=== PATIENT | female | born 1970 | race Caucasian/White ===

== ENCOUNTER 2017-10-23 08:44 | Emergency (ER) | payer OTHER, SELFPAY ==
--- NOTE | 2017-10-23 15:00 | RAD ---
FOUR VIEWS OF THE RIGHT KNEE: INDICATION: Right knee pain after fall. COMPARISON: None. FINDINGS: There is joint capsular distention. No acute fracture or subluxation is evident. No radiopaque fore ign body is noted. IMPRESSION: Joint capsular distention without acute osseous abnormality. If there is concern for internal derang ement, a followup MRI of the right knee may be helpful for further evaluation. POS: OFF
== END 2017-10-23 09:27 | disposition home or self-care (01) ==
LOC: BURERS 08:44
DX: S83.91XA Sprain of unspecified site of right knee, initial encounter (principal); G43.909 Migraine, unspecified, not intractable, without status migrainosus; I10 Essential (primary) hypertension; W01.0XXA Fall on same level from slipping, tripping and stumbling without subsequent striking against object, initial encounter

== ENCOUNTER 2019-08-08 03:51 | Emergency (ER) | payer BC ==
[2019-08-08] MEDS ORDERED: methylPREDNISolone Sod Succ/PF 125 MG/2 ML VIAL ONE (04:06)
[2019-08-08] MEDS ORDERED: Albuterol Sulfate 1.25 MG/3 ML NEB ONE (04:10)
[2019-08-08] MEDS ORDERED: Magnesium 2 GM/50 ML BAG (IN WATER) ONE (04:10)
[2019-08-08 04:14] LABS: #Basophils 0.1 thou/uL (0.0-0.2); #Eosinphils 0.2 thou/uL (0.0-0.7); #Lymphocytes 0.8 thou/uL (1.20-3.40); #Monocytes 0.6 thou/uL (0.11-0.59); #Neutrophils 5.9 thou/uL (1.40-6.50); %Basophils 1.2 % (0.0-1.0); %Monocytes 7.3 % (0.0-10.0); %Neutrophils 78.6 % (42.0-75.0); Hemoglobin 13.5 g/dL (12.0-16.0); Mean Corpuscular HGB CONC 32.6 g/dL (32.0-36.0); Mean Corpuscular Hemoglobin 28.2 pg (27.0-31.0); Mean Corpuscular Volume 86.5 fL (78.0-98.0); Mean Platelet Volume 8.4 fL (7.4-10.4); Platelet Count 407 thou/uL (130-400); RBC Distribution Width 12.2 % (11.5-14.5); Red Blood Cell (RBC) Count 4.78 mill/uL (4.20-5.40); White Blood Cell (WBC) Count 7.5 thou/uL (4.8-10.8)
[2019-08-08 04:28] LABS: ALT (SGPT) 16 U/L (8-55); AST (SGOT) 14 U/L (5-34); Alkaline Phosphatase 73 U/L (40-110); Anion Gap 12 mmol/L (10-20); BUN (Urea Nitrogen) 9 mg/dL (7.0-18.7); Bilirubin, Total 0.4 mg/dL (0.2-1.2); Calc. Creatinine Clearance 0 mL/min (70-130); Calcium 8.8 mg/dL (7.8-10.44); Carbon Dioxide 26 mmol/L (22-29); Chloride 106 mmol/L (98-107); Estimated GFR-MDRD 79; Globulin 3.5 g/dL (2.4-3.5); Glucose 113 mg/dL (70-105); Protein, Total 7.5 g/dL (6.0-8.3); Sodium 140 mmol/L (136-145)
--- NOTE | 2019-08-08 09:34 | RAD ---
AP PORTABLE CHEST: 08/08/2019 0410 HOURS COMPARISON: 04/03/2010 FINDINGS: The heart remains normal in size and the lungs are clear. No infiltrate or effusion is seen. There is no vascular congestion or edema. IMPRESSION: No acute thoracic findings. POS: HOME
== END 2019-08-08 05:30 | disposition home or self-care (01) ==
LOC: BURERS 03:51
DX: J20.9 Acute bronchitis, unspecified (principal); J45.901 Unspecified asthma with (acute) exacerbation; B34.9 Viral infection, unspecified; G43.909 Migraine, unspecified, not intractable, without status migrainosus; I10 Essential (primary) hypertension; Z79.899 Other long term (current) drug therapy
CPT/HCPCS: 71045; 80053; 84484; 85025; 93005; 94640; 94760; 96365; 96375; J2930; J3475; J7620